=== PATIENT | female | born 1955 | race Two or more races ===

== ENCOUNTER 2019-05-30 11:37 | Day surgery (SDC) | payer OTHER ==
[2019-05-30] MEDS ORDERED: FENTAnyl 50 MCG/ML VIAL (14:34)
[2019-05-30] MEDS ORDERED: MIDAZOLAM 1 MG/ML 2 ML INJ ×2 (14:34)
== END 2019-05-30 16:30 | disposition home or self-care (01) ==
LOC: GIL 11:37
DX: Z12.11 Encounter for screening for malignant neoplasm of colon (principal); K64.8 Other hemorrhoids; K57.30 Diverticulosis of large intestine without perforation or abscess without bleeding; E11.9 Type 2 diabetes mellitus without complications; I10 Essential (primary) hypertension
CPT/HCPCS: 45385; 82962; 88305